=== PATIENT | male | born 1940 | race Caucasian/White ===

== ENCOUNTER 2021-11-22 09:30 | Outpatient (CLI) | payer MEDICARE, SELFPAY ==
[2021-11-22 10:06] LABS: INR 1.2; Prothrombin Time 14.4 Seconds (11.1-14.7)
== END 2021-11-22 09:31 | disposition home or self-care (01) ==
PROVIDERS: Visit Provider Pain Medicine Pain Medicine
DX: Z01.812 Encounter for preprocedural laboratory examination (principal); Z51.81 Encounter for therapeutic drug level monitoring; Z79.01 Long term (current) use of anticoagulants
CPT/HCPCS: 36415; 85610

== ENCOUNTER 2022-01-18 01:06 | Day surgery (SDC) | payer MEDICARE, SELFPAY ==
[2022-01-12 10:20] VITALS: BMI 34.0
--- NOTE | 2022-01-12 10:51 | PC.NURSE ---
Report to the Outpatient Waiting Room, entrance under the green pavilion located off [facility], at time _10:00AM on date __01/18/22 . OR Time: __12:00PM . Time changes happen often and if your time is changed the preop area will call you the afternoon before. - You and your visitor will be asked to self-screen and do not enter if you have any COVID symptoms. - Only one visitor and NO children visitors are allowed at this time. - The patient visitor is requested to leave or wait in car when not with patient due to restrictions. - A mask is required within the hospital. Patients may have clear liquids (water, carbonated beverages, clear teas, apple juice) until 3 hours prior to surgery with a maximum of 20 ounces. - No food from midnight until time of surgery Take the following medications with a SIP of water the morning of surgery: ___METOPROLOL AND OXYCODONE OR TRAMADOL NEEDED Medications to discontinue per physician ___HOLD COUMADIN STARTING TODAY (01/12/22) PER DR CARMICHAEL( PER PT AND ) Please no make-up, nail lithuanian, hairspray, perfume, deodorant, or body powder the day of surgery. No jewelry (including any body piercings) or valuables the day of surgery, leave them at home. Please take a shower or bath the night before, or the morning of, surgery with an antibacterial soap. Wear comfortable, loose fitting clothing. Children are encouraged to wear pajamas. - Jewelry must be removed prior to entering the operating room. Rings and piercings that are not removed may be cut off. - The hospital will not accept responsibility for valuables. - Please leave all valuables, including medications, at home the day of surgery. If you are going home after surgery, a licensed coach driver must drive you home. - NO public transportation without another adult. - We recommend that an adult stay with you for 24 hours following discharge. - We also recommend that you do not drive, make important decision, drink alcoholic beverages, or take any drugs that were not prescribed by your health care provider for at least 24 hours after your discharge time. Follow any additional instructions given to you from your surgeon. If you or anyone in your household have experienced Covid symptoms in the past week, please notify your surgeon or the nurse liaison at the phone number below for possible testing. Telephone instructions given to _WIFE AND PATIENT and asked if any additional questions and then verbalized understanding. Patient advised to call surgeon office or pre surgery nurse liaison [phone] if any additional questions.
[2022-01-18] VITALS (15 sets, daily range): BP systolic 116–139; BP diastolic 68–89; PULSE 52–91; RESP 14–18; TEMP 36.3–36.9; O2SAT 93–100; BMI 33.8
--- NOTE | ~2022-01-18 | XR_ITS ---
XR fluoroscopy no charge 01/18/2022 16:59 Spinal cord stimulator implantation TECHNIQUE: Fluoroscopy used during spinal cord stimulator implantation performed by [Brayan green MD] on 01/18/2022. Fluoroscopy time is 5 minutes 40 seconds with 12 fluoroscopic images capture d. FINDINGS: Correlate with procedure note. IMPRESSION: Fluoroscopy used during spinal cord stimulator implantation. Reviewed, dictated and finalized at location A.
[2022-01-18] MEDS: LACTATED RINGERS 1,000 ML 30 ML IV CONT ×2 (10:42→17:41)
--- NOTE | 2022-01-18 10:49 | WPDANESEPPF ---
Anes - Initial Pre Proc Eval Procedure: Operation Date: 01/18/22 12:00 Proposed Procedures p Implantation Percutaneous Thoracic Spinal Cord Stimulator, - Brayan Smith MD s Possible Laminectomy for Paddle Lead Implantation - Brayan Smith MD Date/Time: 01/18/22 10:49 Surgeon: Brayan Smith MD Pre Op Diagnosis: post laminectomy syndrome Patient Data Age: 81 Gender: M Height: 1.83 m Weight: 112.5 kg Last Vital Signs Temp 36.3 C L 01/18/22 10:15 Pulse 52 L 01/18/22 10:15 Resp 16 01/18/22 10:15 BP 116/70 01/18/22 10:15 Pulse Ox 98 01/18/22 10:15 O2 Del Method Room Air 01/18/22 10:15 Allergies Allergy/AdvReac Type Severity Reaction Status Date / Time nifedipine Allergy Intermediate FLUSHED Verified 01/18/22 10:02 AND HIGH B/P amiodarone AdvReac Confusion Verified 01/18/22 10:02 Home Medications Medication Instructions Recorded Confirmed Type albuterol sulfate 90 mcg/actuation 2 puff inhalation Q4-5H PRN Dyspnea 01/12/22 01/12/22 History aerosol inhaler amlodipine 2.5 mg tablet 2.5 mg PO HS 01/12/22 01/18/22 History benazepril 40 mg tablet 40 mg PO QAM 01/12/22 01/18/22 History furosemide 40 mg tablet 40 mg PO QAM 01/12/22 01/18/22 History metoprolol succinate 50 mg 50 mg PO BID 01/12/22 01/18/22 History tablet,extended release 24 hr oxycodone-acetaminophen 5 mg-325 1 tablet PO Q6-8H PRN Pain 01/12/22 01/18/22 History mg tablet potassium chloride 10 mEq 20 meq PO QAM 01/12/22 01/18/22 History tablet,extended release tamsulosin 0.4 mg capsule 0.4 mg PO EVERY OTHER DAY 01/12/22 01/18/22 History tramadol 50 mg tablet 50 mg PO Q6-8H PRN Pain 01/12/22 01/12/22 History warfarin 5 mg tablet 5 mg PO DIRECTED 01/12/22 01/18/22 History warfarin 5 mg tablet 7.5 mg PO DIRECTED 01/12/22 01/18/22 History Laboratory Tests 01/18/22 10:31 PT Pending INR Pending APTT Pending Patient hx anesthesia problems: none Family hx anesthesia problems: none Results Review: All pre-operative results and documents have been reviewed as part of the pre-operative evaluation. [facility] Past Medical History Medical History (Updated 01/18/22 @ 10:54 by Ronan Christy MD) Anxiety Aortic stenosis Atrial fibrillation BPH (benign prostatic hyperplasia) CHF (congestive heart failure) Depression HTN (hypertension) Hyperlipidemia Obesity NIELS (obstructive sleep apnea) Osteoarthritis PVD (peripheral vascular disease) Social History Social History Smoking status: Never smoker Substance use: never Living arrangements: with family Additional living arrangements comments: Spiritual care concerns: No Anes - Eval Final PreProcedure Day of Procedure 01/18/22 10:49 Patient weight: obese Heart: regular rate and rhythm Lungs: clear to auscultation and normal air movement Airway: Mallampati scale class II Neurological: alert and oriented Last oral intake: >/= 8 hours ASA classification: IV Emergent: no Anesthetic plan: proceed Anesthesia type and monitoring: general ETT Results Review: All pre-operative results and documents have been reviewed as part of the pre-operative evaluation. Informed Consent: The patient's anesthetic plan and its attendant risks and benefits were discussed with the patient/family/POA. Questions were solicited and answers provided to the satisfaction of the patient/family/POA.
[2022-01-18 10:53] LABS: INR 1.2; Prothrombin Time 14.4 Seconds (11.1-14.7)
[2022-01-18 10:55] LABS: Partial Thromboplastin Time 26.9 SECONDS (22.3-36.8)
--- NOTE | 2022-01-18 11:21 | PM.IMHP ---
H&P: HPI History of Present Illness Date/Time: 01/18/22 11:21 Chief Complaint: post-laminectomy syndrome. back pain and leg pain. Narrative: 81M with history of lower back stabbing pain that radiates to front of thigh. right worse than left. Has history of L4/5 laminectomy. Had trial with 50% improvement and more mobile. History of Afib. On coumadin. PMFSH Past Medical History Medical History (Updated 01/18/22 @ 11:26 by Brayan Smith MD) Anxiety Aortic stenosis Atrial fibrillation BPH (benign prostatic hyperplasia) CHF (congestive heart failure) Depression HTN (hypertension) Hyperlipidemia Obesity NIELS (obstructive sleep apnea) Osteoarthritis PVD (peripheral vascular disease) Social History Social History Smoking status: Never smoker Substance use: never Living arrangements: with family Additional living arrangements comments: Spiritual care concerns: No Meds Home Medications and Allergies Home Medications Medication Instructions Recorded Confirmed Type albuterol sulfate 90 mcg/actuation 2 puff inhalation Q4-5H PRN Dyspnea 01/12/22 01/12/22 History aerosol inhaler amlodipine 2.5 mg tablet 2.5 mg PO HS 01/12/22 01/18/22 History benazepril 40 mg tablet 40 mg PO QAM 01/12/22 01/18/22 History furosemide 40 mg tablet 40 mg PO QAM 01/12/22 01/18/22 History metoprolol succinate 50 mg 50 mg PO BID 01/12/22 01/18/22 History tablet,extended release 24 hr oxycodone-acetaminophen 5 mg-325 1 tablet PO Q6-8H PRN Pain 01/12/22 01/18/22 History mg tablet potassium chloride 10 mEq 20 meq PO QAM 01/12/22 01/18/22 History tablet,extended release tamsulosin 0.4 mg capsule 0.4 mg PO EVERY OTHER DAY 01/12/22 01/18/22 History tramadol 50 mg tablet 50 mg PO Q6-8H PRN Pain 01/12/22 01/12/22 History warfarin 5 mg tablet 5 mg PO DIRECTED 01/12/22 01/18/22 History warfarin 5 mg tablet 7.5 mg PO DIRECTED 01/12/22 01/18/22 History Allergies Allergy/AdvReac Type Severity Reaction Status Date / Time nifedipine Allergy Intermediate FLUSHED Verified 01/18/22 10:02 AND HIGH B/P amiodarone AdvReac Confusion Verified 01/18/22 10:02 Vital Signs Vital Signs - 24 hr 01/18/22 10:15 Temperature 36.3 C L Pulse Rate 52 L Respiratory Rate 16 Blood Pressure 116/70 Pulse Oximetry 98 Oxygen Delivery Room Air Exam Narrative: unchanged from clinic Assessment and Plan Assessment and plan (1) Post laminectomy syndrome: Code(s): M96.1 - Postlaminectomy syndrome, not elsewhere classified Status: Acute Assessment and Plan: Plan for implantation of spinal cord stimulator. Per Dr. Souza note, preference for percutaneous leads spanning T8 and T9. In contrast to discussion from clinic, we will perform this implantation under general anesthetic. This was discussed with the patient. Will first attempt to place electrodes percutaneously. If unable to place percutaneously, will proceed with an additional incision and perform a lamintomy for paddle placement. The battery will then be implanted in the subcutnaeous buttock. Risks of the procedure were discussed, including: infection, bleeding, CSF leak, spinal cord injury, heart attack, stroke, pulmonary embolism, coma, . There is also a chance of hardware erosion, lead migration, and hardware damage. Patient agreeable to plan. Plan Percuataneous SCS implantation, possible thoracic laminotomy for paddle implantation. Deb General anesthatetic. Thoracic
--- NOTE | 2022-01-18 11:30 | WPDHPUPDATE1 ---
History and Physical Update Update Date/Time: 01/18/22 11:30 History and Physical has been reviewed, including an updated exam of the patient. There are NO changes in the patient's condition. Risks, benefits, and alternatives have been discussed and questions answered. Patient agrees to proceed with procedure.
[2022-01-18] MEDS: ceFAZolin 2 GM/D5W 50 ML 2 GM/50 ML BAG IVPB (12:13)
[2022-01-18] MEDS: ceFAZolin SODIUM 1 GM VIAL ×2 (13:19→16:44)
[2022-01-18] MEDS: LIDO 1%/EPINEPHRINE 1:100,000 10 ML VIAL INFILTRATE (13:19)
[2022-01-18] MEDS: BUPIVACAINE/EPINEPHRINE 0.25% 50 ML VIAL 7 ML INFILTRATE (14:00)
[2022-01-18] MEDS: ceFAZolin SODIUM 1 GM VIAL IV PUSH (16:24)
[2022-01-18] MEDS: BUPIVACAINE HCL 0.5% PF 30 ML VIAL 20 ML INFILTRATE (17:01)
--- NOTE | 2022-01-18 18:12 | W.PM.PROC2 ---
Procedure Note - Detailed Date of Procedure 01/18/22 Pre-op Diagnosis post laminectomy syndrome Post-op Diagnosis Same Procedure Performed Attempted percutaneous implantation of thoracic spinal cord stimulator leads T9 and T10 laminotomies for implantation of paddle-type spinal cord stimulator, Boyd pentad lead Implantation of multiple-array non-rechargeable pulse generator to subcutaneous right buttock. Intraoperative analysis of pulse generator Intraoperative use of fluoroscopy Surgeon Brayan Smith MD In Home [facility] RNFAs Anesthesia General Indications 81M with post-laminectomy syndrome. History of lumbar surgery. Has persistent pain in back and thighs. Responded well to trial. Here for full implantation. Nature of procedure and risks were discussed with patient prior to proceeding. Findings Excessive epidural scar Description of Procedure Patient was identified in preop and consent was obtained planned incisions were marked. He was then transferred to the operating room and placed under general anesthetic and intubated and transferred in prone onto the operating table with gel rolls underneath as well as a large pillow to prop up his hips. His right shoulder was very stiff and was not able to position in a Superman position. And so it was tucked to the side. We then confirmed our incisions fluoroscopy. We planned for the percutaneous insertion at L2-L3 as well as if needed a incision up around T9 and T10 if we have to proceed with a laminotomy for paddle placement, which we did in the end. He was then prepped and draped in a sterile fashion he received local anesthetic to the planned incisions as well as IV Ancef prior to starting. A time-out was performed prior to starting. Skin knife to open the lumbar incision for percutaneous insertion. He was surprisingly deep with a very thick layer of subcutaneous fat. A subcutaneous pocket was fashioned. We then took the Touhy needle from lead set and under fluoroscopy inserted into the epidural space. I was able to insert into the epidural space at L1-2, however the lead kept going ventral as it was hitting something in the center. For this reason I withdrew the needle and then reinserted under fluoroscopy a level above. Once again I encountered scar. I did inserted 1 last time at T11-12. Once again I was not able to keep the lead in the dorsal epidural space. Having tried multiple times I decided that we would proceed with a thoracic laminotomy for paddle lead placement. Incision was made with fluoroscopy over T10. Once again he had a surprisingly deep amount of subcutaneous fat. After exposing the lamina of T10 and the top of T11 I was able to place the longest Fry retractors available to maintain the exposure, and two sets of retractors were required. After taking time to maintain hemostasis, I then rongeured the T10 spinous process and top of the T11 spinous process. I then performed a laminotomy of T10 with the drill and rongeurs. Once this was complete, I used the trial paddle to assess for patency of the epidural space. It was quite clear that there was some epidural scarring causing resistance. After expanding the lamintomy rostrally once again there was significant resistance. And so I left a bridge of bone rostrally and performed a lamintomy of T9. Once this was complete and the epidural scarring was removed, I was able to pass the trial paddle into the epidural space adequately. ANd so the pentad paddle was brought into the field and placed in the dorsal epidural space. The position over the T9 vertebral body with the top covering the T8/9 disc space was confirmed with fluoroscopy. With the Paddle electrode in place, the leads were anchored to the T11 spinous process. I then made an incision over the right buttock and fashioned a subcutaneous pocket for the IPG. We then tunneled across the IPG pocket and the laminotomy site and passed the leads into the IPG pocket. The battery w
--- NOTE | 2022-01-18 19:19 | SUR.PHASEI ---
1845 PT MEETS ANESTHESIA CRITERIA TO BE DISCHARGED FROM PACU. NO ROOM AVAILABLE. IN HOLDING PATTERN.
--- NOTE | 2022-01-18 20:02 | ADMGEN ---
This patient, Aj Lara, was admitted to Medical Room 254-01. Patient/family oriented to hospital policies and general routines including ID bracelet, bed and alarms, visiting hours, pain management, procedures, bathroom and other care routines, personal items, smoking policy, room service/diet, and visiting hours. Information on how to activate the Rapid Response Team has been discussed. Patient/Family are encouraged to report perceived risks to care and to ask questions if they do not understand what they are told or what they should do.
[2022-01-18] MEDS: METOPROLOL SUCCINATE EXT REL 50 MG TABCR PO (21:30)
[2022-01-18] MEDS: DOCUSATE SODIUM 100 MG CAPSULE PO (21:30)
[2022-01-18] MEDS: amLODIPine BESYLATE 2.5 MG TABLET PO (21:31)
[2022-01-19 02:06] VITALS: BP 119/61; PULSE 70; RESP 18; TEMP 36.8; O2SAT 93
[2022-01-19 05:06] VITALS: BP 144/67; PULSE 71; RESP 18; TEMP 36.7; O2SAT 98
[2022-01-19 05:25] LABS: Potassium 4.3 mmol/L (3.4-5.0)
[2022-01-19] MEDS: TAMSULOSIN HCL 0.4 MG CAPSULE PO (08:22)
[2022-01-19] MEDS: DOCUSATE SODIUM 100 MG CAPSULE PO (08:22)
[2022-01-19] MEDS: lisinopriL 20 MG TABLET 40 MG PO (08:22)
[2022-01-19 08:23] VITALS: PULSE 76
[2022-01-19] MEDS: METOPROLOL SUCCINATE EXT REL 50 MG TABCR PO (08:23)
[2022-01-19] MEDS: HYDROcodone/acetaminophen (*CRX) 10-325 MG TABLET 1 TAB PO (08:31)
--- NOTE | 2022-01-19 08:34 | WPDANESPN ---
Anes - Prog Note Post-Op Date/Time: 01/19/22 08:34 Cardiovascular status: normal Respiratory status: normal Airway patency: baseline Mental status: baseline Post-Op hydration status: normal Vital Signs: Last Vital Signs Temp 98.0 F 01/19/22 05:06 Pulse 76 01/19/22 08:23 Resp 18 01/19/22 05:06 BP 144/67 H 01/19/22 05:06 Pulse Ox 98 01/19/22 05:06 O2 Del Method Room Air 01/18/22 20:30 O2 Flow Rate 6 01/18/22 18:10 Pain Score (VAS): 14 I/O: Intake & Output 01/18/22 01/19/22 01/19/22 23:59 07:59 15:59 Intake Total 250 250 Output Total 250 300 Balance 0 -50 Laboratory Tests 01/19/22 04:52 01/18/22 01/18/22 01/19/22 10:31 10:31 04:52 PT 14.4 INR 1.2 APTT 26.9 Potassium 4.3 Blood Type O Positive Antibody Screen Negative Post-procedural complaints: none Patient Feedback: Patient satisfied with anesthetic care. pt dissatisfied with post operative care. rating pain 12-14, states has had no pain meds nor has he had his home meds. RN in the room at end of visit to provide meds & pain meds available. pt encouraged to communicate needs to staff.
[2022-01-19 08:35] VITALS: O2SAT 95
--- NOTE | 2022-01-19 08:48 | WPDNEUROSGPN ---
Progress Note: A&P Assessment and Plan (1) Post laminectomy syndrome: Code(s): M96.1 - Postlaminectomy syndrome, not elsewhere classified Status: Acute Assessment and Plan: s/p scs implant. plan to d/c home Subjective Date/time seen: 01/19/22 08:49 Interval history: s/p paddle thoracic scs implantation with T9 and T10 lamintomies. doing well today. Complaining of pain/soreness over incisions. had one norco just now, nothing overnight. has been up to bathroom. Exam Narrative: moving x4. incisions c/d/i Objective Data Vital Signs Vital Signs: Vital Signs - 24 hr 01/18/22 10:15 01/18/22 17:41 01/18/22 17:55 Temperature 36.3 C L 36.4 C Pulse Rate 52 L 62 66 Respiratory Rate 16 14 14 Blood Pressure 116/70 119/74 116/69 Pulse Oximetry 98 98 100 Oxygen Delivery Room Air Simple Face Mask Simple Face Mask Oxygen Flow Rate 6 6 01/18/22 18:10 01/18/22 18:25 01/18/22 18:40 Temperature Pulse Rate 66 69 71 Respiratory Rate 14 14 16 Blood Pressure 119/71 130/78 135/70 Pulse Oximetry 100 95 99 Oxygen Delivery Simple Face Mask Room Air Room Air Oxygen Flow Rate 6 01/18/22 18:55 01/18/22 19:25 01/18/22 19:10 Temperature Pulse Rate 79 71 71 Respiratory Rate 18 14 14 Blood Pressure 138/83 129/89 138/83 Pulse Oximetry 93 94 94 Oxygen Delivery Room Air Room Air Room Air Oxygen Flow Rate 01/18/22 19:50 01/18/22 20:30 01/18/22 20:15 Temperature 36.9 C 36.7 C Pulse Rate 69 63 Respiratory Rate 18 17 Blood Pressure 125/72 126/68 Pulse Oximetry 93 93 Oxygen Delivery Room Air Oxygen Flow Rate 01/18/22 20:45 01/18/22 21:30 01/18/22 21:15 Temperature 36.9 C 36.6 C Pulse Rate 70 70 91 Respiratory Rate 18 18 Blood Pressure 139/69 133/78 Pulse Oximetry 95 95 Oxygen Delivery Oxygen Flow Rate 01/18/22 22:15 01/19/22 02:06 01/19/22 05:06 Temperature 36.8 C 36.8 C 36.7 C Pulse Rate 75 70 71 Respiratory Rate 18 18 18 Blood Pressure 131/69 119/61 144/67 H Pulse Oximetry 96 93 98 Oxygen Delivery Oxygen Flow Rate 01/19/22 08:23 Temperature Pulse Rate 76 Respiratory Rate Blood Pressure Pulse Oximetry Oxygen Delivery Oxygen Flow Rate Intake/Output Intake/Output: Intake & Output 01/16/22 01/17/22 01/18/22 01/19/22 23:59 23:59 23:59 23:59 Intake Total 300 250 Output Total 250 300 Balance 50 -50 Meds/Results Medications: Active Medications Generic Name Dose Route Start Last Admin Trade Name Freq PRN Reason Stop Dose Admin Acetaminophen 650 mg 01/18/22 18:06 Acetaminophen 325 Mg Tablet PO Q6H PRN Mild Pain (1-3) Hydrocodone Bitart/Acetaminophen 1 tab 01/18/22 18:06 01/19/22 08:31 Hydrocodone/Acetaminophen (*Crx) 10-325 Mg Tablet PO 1 tab Q4H PRN Administration Moderate Pain (4-6) Al Hydrox/Mg Hydrox/Simethicone 20 ml 01/18/22 18:06 Mag Hydrox/Al Hydrox/Simeth 30 Ml Udc PO Q4H PRN Indigestion/Heartburn Albuterol 2 puff 01/18/22 18:08 Albuterol Sulfate (*Sp) Aerosol 1 Puff INHALATION Q4H PRN Dyspnea Amlodipine Besylate 2.5 mg 01/18/22 21:00 01/18/22 21:31 Amlodipine Besylate 2.5 Mg Tablet PO 2.5 mg HS TERRI Administration Bisacodyl 10 mg 01/18/22 18:06 Bisacodyl 10 Mg Suppository RECTAL DAILY PRN Constipation Cyclobenzaprine HCl 10 mg 01/18/22 18:06 Cyclobenzaprine Hcl 10 Mg Tablet PO TID PRN Muscle Spasms Docusate Sodium 100 mg 01/18/22 21:00 01/19/22 08:22 Docusate Sodium 100 Mg Capsule PO 100 mg Q12HR TERRI Administration Furosemide 40 mg 01/19/22 09:00 Furosemide 40 Mg Tablet PO QAM TERRI Lisinopril 40 mg 01/19/22 09:00 01/19/22 08:22 Lisinopril 20 Mg Tablet PO 40 mg QAM TERRI Administration Metoprolol Succinate 50 mg 01/18/22 21:00 01/19/22 08:23 Metoprolol Succinate Ext Rel 50 Mg Tabcr PO 50 mg Q12HR TERRI Administration Morphine Sulfate 2 mg 10
[2022-01-19 10:38] VITALS: BP 117/56; PULSE 77; RESP 16; TEMP 37; O2SAT 94
== END 2022-01-19 11:52 | disposition home or self-care (01) ==
LOC: ANHSURGERY 09:49 → ANH2MED 01-19 02:16
PROVIDERS: Anesthesiology; Visit Provider Neurological Surgery
PROC: (CPT 63685; principal; 2022-01-18 12:00)
PROC: (CPT 63005; 2022-01-18 12:00)
DX: M96.1 Postlaminectomy syndrome, not elsewhere classified (principal); Y83.8 Other surgical procedures as the cause of abnormal reaction of the patient, or of later complication, without mention of misadventure at the time of the procedure; Z23 Encounter for immunization; I11.0 Hypertensive heart disease with heart failure; I50.9 Heart failure, unspecified; I48.91 Unspecified atrial fibrillation; E78.5 Hyperlipidemia, unspecified; G47.33 Obstructive sleep apnea (adult) (pediatric); I73.9 Peripheral vascular disease, unspecified; I35.0 Nonrheumatic aortic (valve) stenosis; N40.0 Benign prostatic hyperplasia without lower urinary tract symptoms; M19.90 Unspecified osteoarthritis, unspecified site; F41.9 Anxiety disorder, unspecified; F32.A Depression, unspecified; Z79.01 Long term (current) use of anticoagulants; Z79.51 Long term (current) use of inhaled steroids; Z79.891 Long term (current) use of opiate analgesic; E66.9 Obesity, unspecified; Z68.33 Body mass index [BMI] 33.0-33.9, adult
CPT/HCPCS: 63685; 63655; 36415; 84132; 85610; 85730; 86850; 86900; 86901; 90471; 90686; 99199; A9270; G0008; J0330; J0690; J1100; J1170; J2405; J2704; J3010; J3370; J7120